=== PATIENT | male | born 1965 | race Caucasian/White ===

== ENCOUNTER → 2024-03-23 15:38 | Outpatient (CLI) | payer OTHER, SELFPAY ==
--- NOTE | 2024-03-23 15:45 | DI.RAD.S_ITS ---
PROCEDURE: FL ARTHROGRAM SHOULDER LT INDICATIONS: anterior shoulder dislocation COMPARISON: None. TECHNIQUE: The indications, alternatives, benefits, risks, and complications of the procedure were explained to the patient. Written informed consent was obtained and placed in the chart. The shoulder was examined fluoroscopically and a site for needle placement chosen for entry into the glenohumeral joint from an anterior approach. The skin was prepped and draped in a sterile fashion, and 1% lidocaine infiltrated from skin down to joint capsule. A spinal needle was inserted into the glenohumeral joint, and a small amount of iodinated contrast media injected to confirm intra-articular placement of the needle tip. This was followed by approximately 12 mL dilute solution of a gadolinium containing MR contrast agent. The needle was removed and a dressing was applied. The patient was given postprocedural instructions and sent to the MR suite for MR imaging. FINDINGS: A single fluoroscopic spot image demonstrates intra-articular location of injected iodinated contrast. IMPRESSION: Successful fluoroscopically guided administration of dilute Gadolinium solution into the left shoulder joint for MR arthrogram. Dictated by: Gabriel Conde M.D. on 03/23/2024 at 17:02 Approved by: Gabriel Conde M.D. on 03/23/2024 at 17:03
--- NOTE | 2024-03-23 15:46 | DI.MRI.S_ITS ---
PROCEDURE: MR SHOULDER LT W CON INDICATIONS: anterior shoulder dislocation of Left shoulder TECHNIQUE: After the administration of 12 mL of dilute intra-articular Gadolinium contrast, oblique coronal T1 and T2 spin echo with fat saturation, oblique sagittal T1 spin echo with and without fat saturation, oblique sagittal T2 fast spin echo with fat saturation, axial T1 spin echo with fat saturation through the shoulder. COMPARISON: None. FINDINGS: Image quality: Excellent. Rotator cuff: There is full-thickness rupture involving distal supraspinatus at its insertion on the humeral head with up to 2.1 cm medial retraction of torn tendon fibers and a fluid-filled gap measures up to 2 cm in AP dimension. Contrast is seen extravasating into subacromial subdeltoid bursa. Low-grade articular surface partial-thickness tear is also seen involving distal infraspinatus at its insertion on the humeral head. Tendinosis and low-grade partial-thickness tear involving superior to mid fibers of distal subscapularis is seen. Sagittal images shows very mild supraspinatus muscle atrophy. Bones and bursae: There is marrow edema involving posterior lateral aspect of humeral head with Hill-Sachs deformity in this area. No corresponding Bankart fracture is noted. No dislocation. Moderate acromioclavicular joint osteoarthritic changes are seen. Capsule and soft tissues: There is signal abnormality and fraying involving anterior inferior glenoid labrum with contrast extension suggestive of extensive anterior anterior glenoid labral tear. The glenohumeral ligaments appear intact. The long head of the biceps tendon demonstrates normal location and morphology. No intra-articular bodies. IMPRESSION: 1. Full-thickness rupture of distal supraspinatus at its insertion on humeral head with up to 2.1 cm medial retraction of torn tendon fibers and fluid-filled gap measures 2 cm in AP dimension. Low-grade articular surface partial-thickness tear involving distal infraspinatus. Low-grade partial-thickness tear involving superior to mid fibers of distal subscapularis. Very mild supraspinatus muscle atrophy. 2. Acute appearing Hill-Sachs deformity involving posterior lateral aspect of upper humeral head. No Bankart fracture. No dislocation. Moderate acromioclavicular joint osteoarthritis. No loose bodies. 3. Extensive anterior-inferior glenoid labral tear consistent with Hill-Sachs lesion. Dictated by: Josué Cyr M.D. on 03/24/2024 at 13:41 Approved by: Josué Cyr M.D. on 03/24/2024 at 13:51
[2024-03-23] MEDS: SODIUM CHLORIDE 0.9 % 20 ML VIAL IV (16:22)
[2024-03-23] MEDS: LIDOCAINE 1% 20 ML INJ (16:22)
== END ==
DX: S43.015A Anterior dislocation of left humerus, initial encounter (principal); S46.012A Strain of muscle(s) and tendon(s) of the rotator cuff of left shoulder, initial encounter; S43.492A Other sprain of left shoulder joint, initial encounter; M19.012 Primary osteoarthritis, left shoulder; X58.XXXA Exposure to other specified factors, initial encounter
CPT/HCPCS: 23350; 73040; 73222; A9579